=== PATIENT | male | born 1975 | race Caucasian/White ===

== ENCOUNTER 2020-08-19 14:01 | Emergency (ER) | payer SELFPAY ==
[~2020-08-19] VITALS: Ht 168 cm; Wt 68.0 kg
--- NOTE | 2020-08-19 14:17 | ED Chest Pain ---
General Chief Complaint: Chest Pain Stated Complaint: LEFT ARM PAIN, CP, NECK PAIN Source: patient Exam Limitations: no limitations History of Present Illness Date Seen by Provider: Aug 19, 2020 Time Seen by Provider: 14:15 Initial Comments To ER with reports of left neck jaw and left arm pain. Is been ongoing for about 2 weeks and it was initially associated with diaphoresis and feeling of doom. He is a former IV methamphetamine user and he quit about 10 days ago at the onset of the symptoms. Timing/Duration: changing over time Severity/Quality: moderate Location: central Radiation: no radiation Activities at Onset: none Allergies and Home Medications Allergies Coded Allergies: No Known Drug Allergies (Unverified , 08/19/20) Patient Home Medication List Home Medication List Reviewed: Yes Review of Systems Review of Systems Constitutional: see HPI EENTM: No Symptoms Reported Respiratory: No Symptoms Reported Cardiovascular: No Symptoms Reported Gastrointestinal: No Symptoms Reported Genitourinary: No Symptoms Reported Musculoskeletal: see HPI, neck pain Skin: no symptoms reported Psychiatric/Neurological: No Symptoms Reported Endocrine: No Symptoms Reported Hematologic/Lymphatic: No Symptoms Reported Physical Exam Vital Signs Vital Signs - First Documented 08/19/20 14:05 O2 Delivery Room Air Capillary Refill : Height, Weight, BMI Height: '" Weight: lbs. oz. kg; BMI Method: General Appearance: No Apparent Distress, WD/WN, Anxious HEENT: PERRL/EOMI, TMs Normal Neck: Full Range of Motion, Normal Inspection Respiratory: No Accessory Muscle Use, No Respiratory Distress Cardiovascular: Regular Rate, Rhythm, Normal Peripheral Pulses Gastrointestinal: Normal Bowel Sounds, Non Tender, Soft Extremity: Normal Capillary Refill, Normal Inspection Neurologic/Psychiatric: Alert, Oriented x3 Skin: Normal Color, Warm/Dry Progress/Results/Core Measures Results/Orders Lab Results Laboratory Tests Test 08/19/20 14:15 Range/Units White Blood Count 7.2 4.3-11.0 10^3/uL Red Blood Count 5.51 4.30-5.52 10^6/uL Hemoglobin 16.4 13.3-17.7 g/dL Hematocrit 48 40-54 % Mean Corpuscular Volume 88 80-99 fL Mean Corpuscular Hemoglobin 30 25-34 pg Mean Corpuscular Hemoglobin Concent 34 32-36 g/dL Red Cell Distribution Width 12.6 10.0-14.5 % Platelet Count 290 130-400 10^3/uL Mean Platelet Volume 8.4 L 9.0-12.2 fL Immature Granulocyte % (Auto) 0 % Neutrophils (%) (Auto) 59 42-75 % Lymphocytes (%) (Auto) 32 12-44 % Monocytes (%) (Auto) 7 0-12 % Eosinophils (%) (Auto) 1 0-10 % Basophils (%) (Auto) 0 0-10 % Neutrophils # (Auto) 4.2 1.8-7.8 X 10^3 Lymphocytes # (Auto) 2.3 1.0-4.0 X 10^3 Monocytes # (Auto) 0.5 0.0-1.0 X 10^3 Eosinophils # (Auto) 0.0 0.0-0.3 10^3/uL Basophils # (Auto) 0.0 0.0-0.1 10^3/uL Immature Granulocyte # (Auto) 0.0 0.0-0.1 10^3/uL Erythrocyte Sedimentation Rate 2 0-15 MM/HR Prothrombin Time 12.5 12.2-14.7 SEC INR Comment 0.9 0.8-1.4 Activated Partial Thromboplast Time 32 24-35 SEC Sodium Level 139 135-145 MMOL/L Potassium Level 3.7 3.6-5.0 MMOL/L Chloride Level 104 98-107 MMOL/L Carbon Dioxide Level 23 21-32 MMOL/L Anion Gap 12 5-14 MMOL/L Blood Urea Nitrogen 14 7-18 MG/DL Creatinine 1.04 0.60-1.30 MG/DL Estimat Glomerular Filtration Rate > 60 BUN/Creatinine Ratio 13 Glucose Level 87 70-105 MG/DL Calcium Level 9.5 8.5-10.1 MG/DL Corrected Calcium 8.5-10.1 MG/DL Magnesium Level 2.1 1.6-2.4 MG/DL Total Bilirubin 0.3 0.1-1.0 MG/DL Aspartate Amino Transf (AST/SGOT) 38 H 5-34 U/L Alanine Aminotransferase (ALT/SGPT) 69 H 0-55 U/L Alkaline Phosphatase 75 40-136 U/L Myoglobin 37.0 10.0-92.0 NG/ML Troponin I < 0.028 <0.028 NG/ML C-Reactive Protein High Sensitivity 0.07 0.00-0.50 MG/DL Total Protein 8.1 6.4-8.2 GM/DL Albumin 4.6 H 3.2-4.5 GM/DL My Orders Orders - DANIELLE TRUONG APRN Cbc With Automated Diff (08/19/20 14:05) Magnesium (08/19/20 14:05) Chest 1 View, Ap/Pa Only (08/19/20 14:05) Ekg Tracing (08/19/20 14:05) Comprehensive Metabolic Panel (08/19/20 14:05) Myoglobin Serum (08/19/20 14:05) Protime With Inr (08/19/20 14:05) Partial Thromboplastin Time (08/19/20 14:05) O2 (08/19/20 14:05) Monitor-Rhythm Ecg Trace Only (08/19/20 14:05) Lipid Panel (08/20/20 06:00) Ed Iv/Invasive Line Start (08/19/20 14:05) Troponin I (08/19/20 14:05) Thyroid Stimulating Hormone (08/19/20 14:14) Free T4 (Free Thyroxine) (08/19/20 14:14) Hs C Reactive Protein (08/19/20 14:17) Erythrocyte Sedimentation Rate (08/19/20 14:17) Vital Signs/I&O 08/19/20 14:05 O2 Delivery Room Air Departure Impression Primary Impression: Neck pain Additional Impressions: History of methamphetamine use Elevated liver function tests Disposition: HOME, SELF-CARE Condition: Stable Departure-Patient Inst. Decision time for Depature: 15:11 Referrals: NO,LOCAL PHYSICIAN (PCP/Family) Primary Care Physician Patient Instructions: Neck Pain Exercises Add. Discharge Instructions: 1. Follow-up with your doctor within the next few weeks for further evaluation and recheck. Your liver enzymes were slightly elevated. This needs to be followed up on. Continue to abstain from any methamphetamine use. Return to ER for any concerns. All discharge instructions reviewed with patient and/or family. Voiced understanding. Scripts Methocarbamol (Robaxin-750) 750 Mg Tablet 750 MG PO Q4H PRN for PAIN-MODERATE (5-7), #20 TAB Prov: DANIELLE TRUONG APRN 08/19/20 Naproxen (Naprosyn) 500 Mg Tablet 500 MG PO BID, #30 TAB 0 Refills Prov: DANIELLE TRUONG APRN 08/19/20 DANIELLE TRUONG APRN Aug 19, 2020 14:17
[2020-08-19 14:28] LABS: BASOPHILS % (AUTO) 0 % (0-10); EOSINOPHILS % (AUTO) 1 % (0-10); HEMATOCRIT 48 % (40-54); HEMOGLOBIN 16.4 g/dL (13.3-17.7); LYMPHOCYTES # (AUTO) 2.3 X 10^3 (1.0-4.0); LYMPHOCYTES % (AUTO) 32 % (12-44); MEAN CORPUSCULAR HEMOGLOBIN 30 pg (25-34); MEAN CORPUSCULAR HGB CONC 34 g/dL (32-36); MEAN CORPUSCULAR VOLUME 88 fL (80-99); MEAN PLATELET VOLUME 8.4 fL (9.0-12.2); MONOCYTES # (AUTO) 0.5 X 10^3 (0.0-1.0); MONOCYTES % (AUTO) 7 % (0-12); NEUTROPHILS # (AUTO) 4.2 X 10^3 (1.8-7.8); NEUTROPHILS % (AUTO) 59 % (42-75); PLATELET COUNT 290 10^3/uL (130-400); WHITE BLOOD COUNT 7.2 10^3/uL (4.3-11.0)
[2020-08-19 14:40] LABS: ALBUMIN 4.6 GM/DL (3.2-4.5); CHLORIDE 104 MMOL/L (98-107); POTASSIUM 3.7 MMOL/L (3.6-5.0); SODIUM 139 MMOL/L (135-145)
[2020-08-19 14:42] LABS: CALCIUM 9.5 MG/DL (8.5-10.1)
[2020-08-19 14:43] LABS: GLUCOSE 87 MG/DL (70-105); INR 0.9 (0.8-1.4); PROTHROMBIN TIME PATIENT 12.5 SEC (12.2-14.7); TOTAL PROTEIN 8.1 GM/DL (6.4-8.2)
[2020-08-19 14:44] LABS: CARBON DIOXIDE 23 MMOL/L (21-32)
[2020-08-19 14:45] LABS: BILIRUBIN,TOTAL 0.3 MG/DL (0.1-1.0)
[2020-08-19 14:46] LABS: ALKALINE PHOSPHATASE 75 U/L (40-136); CREATININE SERUM 1.04 MG/DL (0.60-1.30); GFR ESTIMATED > 60
[2020-08-19 14:47] LABS: BUN/CREATININE RATIO 13
--- NOTE | 2020-08-19 14:47 | Diagnostic Imaging Report ---
EXAMINATION: Portable erect AP chest at 2:44 p.m. INDICATION: Left arm pain. COMPARISON: There are no prior studies available for comparison. FINDINGS: The heart size is within normal limits. The lungs are clear. There is no evidence for failure, pneumonia or pleural effusion. The mediastinum is not widened. The osseous structures are intact. External cardiac monitoring electrodes are noted. IMPRESSION: There is no evidence for active disease. Dictated by: Dictated on workstation # [id number]
[2020-08-19 14:49] LABS: ALANINE AMINOTRANSFERASE 69 U/L (0-55)
[2020-08-19 14:50] LABS: MAGNESIUM 2.1 MG/DL (1.6-2.4)
[2020-08-19 15:13] LABS: FREE T4 (FREE THYROXINE) 0.99 NG/DL (0.70-1.48)
[2020-08-19] MEDS ORDERED: NAPR-1071 PO (15:14)
[2020-08-19] MEDS ORDERED: METH-313 PO (15:14)
[2020-08-19 15:34] VITALS: BP 125/80
== END 2020-08-19 15:34 | disposition home or self-care (01) ==
LOC: ER 14:04
DX: M54.2 Cervicalgia (principal); R79.89 Other specified abnormal findings of blood chemistry; F41.9 Anxiety disorder, unspecified
CPT/HCPCS: 36415; 71045; 80053; 83735; 83874; 84439; 84443; 84484; 85025; 85610; 85652; 85730; 86141; 93005; 93041